=== PATIENT | female | born 1960 | race Caucasian/White ===

== ENCOUNTER 2018-05-21 06:19 | Outpatient (CLI) | payer BC ==
[~2018-05-21] VITALS: Ht 170.2 cm; Wt 59.0 kg
== END 2018-05-21 13:33 | disposition home or self-care (01) ==
LOC: PREOP 06:19
PROVIDERS: ATTEND Internal Medicine
DX: Z01.818 Encounter for other preprocedural examination (principal)

== ENCOUNTER 2018-05-25 07:34 | Day surgery (SDC) | payer BC ==
--- NOTE | 2018-05-21 17:03 | HISTORY AND PHYSICAL ---
DATE OF SERVICE: COLONOSCOPY HISTORY AND PHYSICAL HISTORY OF PRESENT ILLNESS: The patient is a 57-year-old white female referred by Dr. Cole for screening colonoscopy. She reports no past history of colonoscopy. She reports she has been under increasing stress with mother who is in failing health. She has been going through menopause and there have been some work place stresses as well. She had 2 episodes of diarrhea, which is unusual for her. She has a past history of reported irritable bowel syndrome, but has constipation predominant. With one of her illnesses, her was sick as well with diarrhea. She took Culturelle and within several weeks diarrhea had resolved. She had had some intermittent mucus with this, but denies any recent mucus and did not have any reported bright red blood per rectum or melena. She had some associated belching, but denied dysphagia or abdominal pain. There was some temporary distention, but this has resolved as well. She has had some intermittent nausea. Currently, she is taking no prescription medicine. PAST SURGICAL HISTORY: She reports no past surgeries. FAMILY HISTORY: She had one grandmother with uterine cancer that metastasized to the colon and she had one uncle, who has had some colon polyps removed. She is not aware of any family history for primary colon cancer. SOCIAL HISTORY: She has no past smoking history and no past history of alcohol consumption. PHYSICAL EXAMINATION: GENERAL: Reveals a normal weight well-appearing white female appears to be in no acute distress. VITAL SIGNS: 127.8 pounds. She states that her weight has been stable. Blood pressure 130/80, heart rate 72 and regular. HEENT: Unremarkable. Oral cavity reveals Mallampati class 2 pharyngeal configuration. No erythema is noted. No exudate is noted. CHEST: Clear to auscultation. CARDIOVASCULAR: Reveals a regular rate and rhythm without murmur, S3 or S4. ABDOMEN: Soft, supple without mass, organomegaly or tenderness. Bowel sounds are positive. No bruits are appreciated. EXTREMITIES: Reveal no cyanosis, clubbing or edema. ASSESSMENT AND PLAN: The patient was set up for screening colonoscopy on 05/25/2018. Prep instructions with Suprep kit were given. Questions were answered. The patient is extremely anxious about the procedure and wishes to have no recollection of it, so will be in listing anesthesiology services for Diprivan administration. I thank you for the referral of this pleasant female. Job ID: [id number] DocumentID: [id number] Dictated Date: 05/09/2018 20:22:31 Heel Packer Date: 05/09/2018 21:02:01 Dictated By: STEPHANIE DOMINGUEZ MD
[~2018-05-25] VITALS: Ht 170.2 cm; Wt 59.0 kg
[2018-05-25] MEDS ORDERED: LACTATED RINGERS 1,000 ML IV ONE (07:37)
[2018-05-25 07:40] VITALS: BP 132/87
[2018-05-25] MEDS ORDERED: LACTATED RINGERS 1,000 ML IV STA (07:44)
[2018-05-25] MEDS ORDERED: LIDOCAINE JELLY 2% 6 ML SYRINGE MM PRN (07:45)
--- NOTE | 2018-05-25 07:56 | Pre-Op Note & Conscious Sedat ---
Pre-Operative Progress Note H&P Reviewed The H&P was reviewed, patient examined and no changes noted. Date H&P Reviewed: May 25, 2018 Time H&P Reviewed: 07:50 Conscious Sedation Pre-Proced ASA Score 2 For ASA 3 and 4: Consider anesthesia and medical clearance. Also, for patients with a history of failed moderate sedation consider anesthesia. Airway Lungs Heart ASA score ASA 1: a normal healthy patient ASA 2: a patient with a mild systemic disease (mid diabetes, controlled hypertension, obesity ASA 3: a patient with a severe systemic disease that limits activity (angina , COPD, prior Myocardial infarction) ASA 4: a patient with an incapacitating disease that is a constant threat to life (CHF, renal failure) ASA 5: a moribund patient not expected to survive 24 hrs. (ruptured aneurysm) ASA 6: a declared brain patient whose organs are being harvested. For emergent operations, add the letter E after the classification Mallampati Classification Grade 2 Sedation Plan Analgesia, Amnesia, Plan communicated to team members, Discussed options with patient/fam, Discussed risks with patient/fam The patient is an appropriate candidate to undergo the planned procedure, sedation, and anesthesia. The patient immediately re-assessed prior to indication. STEPHANIE DOMINGUEZ MD May 25, 2018 07:56
[2018-05-25] MEDS ORDERED: D5 LR IV SOLUTION 1,000 ML IV STA (08:13)
[2018-05-25] MEDS ORDERED: fentaNYL INJECTION 100 MCG/2 ML AMP IVP ONE (08:15)
[2018-05-25] MEDS ORDERED: MIDAZOLAM 2 MG/2 ML (VERSED) VIAL IVP ONE (08:15)
[2018-05-25] MEDS ORDERED: FAMOTIDINE 20MG/2ML IV (PEPCID) IV ONE (08:15)
[2018-05-25] MEDS ORDERED: HURRICAINE EXT TUBE (BENZOCAINE) XX PRN (08:15)
[2018-05-25] MEDS ORDERED: FAMOTIDINE 20MG/2ML IV (PEPCID) ONE (08:20)
[2018-05-25] MEDS ORDERED: proPOfol 200 MG/20 ML (DIPRIVAN) VIAL IV ONE (08:34)
[2018-05-25] MEDS ORDERED: MIDAZOLAM 2 MG/2 ML (VERSED) VIAL ONE (08:35)
[2018-05-25] MEDS ORDERED: LIDOCAINE JELLY 2% 6 ML SYRINGE ONE (08:43)
[2018-05-25 09:15] VITALS: BP 122/74
[2018-05-25 09:40] VITALS: BP 124/75
[2018-05-25 09:41] VITALS: BP 132/87
[2018-05-25 09:50] VITALS: BP 132/87
--- NOTE | 2018-05-25 15:43 | OPERATIVE REPORT ---
DATE OF SERVICE: 05/25/2018 COLONOSCOPY SUMMARY INDICATION FOR THE PROCEDURE: Screening colonoscopy. DESCRIPTION OF THE PROCEDURE: The patient was placed in the left lateral decubitus position. Prior to undergoing colonoscopy, digital rectal evaluation was performed. Anal sphincter tone was normal and the perianal reflexes intact. There are no abnormalities noted to digital inspection of anal canal or distal rectal vault. The colonoscope was then inserted into the rectum and under direct visualization, advanced to the cecum. The cecum was identified by identification of the ileocecal valve and cecal strap. Photographic documentation was obtained. Careful inspection was made as the colonoscope was withdrawn. The procedure was done under Diprivan base anesthesia due to history of IBS. FINDINGS: There is no evidence for internal or external hemorrhoids. The rectum, sigmoid colon, descending colon, transverse colon, ascending colon and cecum were unremarkable with no evidence for neoplasia, diverticular disease or other abnormality. ASSESSMENT: Normal colonoscopy to the cecum. As the patient is not aware of any family history for colon cancer, we would advocate consideration for repeat screening colonoscopy in 10 years. I thank you for the referral of this pleasant lady. Sincerely, Job ID: [id number] DocumentID: [id number] Dictated Date: 05/25/2018 09:03:46 Truck Repair Supervisor Date: 05/25/2018 15:43:13 Dictated By: STEPHANIE DOMINGUEZ MD
== END 2018-05-25 09:45 | disposition home or self-care (01) ==
LOC: ENDO 07:34
PROVIDERS: ATTEND Internal Medicine
DX: Z12.11 Encounter for screening for malignant neoplasm of colon (principal); K21.9 Gastro-esophageal reflux disease without esophagitis

== ENCOUNTER → 2020-10-26 | Outpatient (CLI) | payer BC ==
--- NOTE | 2020-10-26 14:13 | Diagnostic Imaging Report ---
INDICATION: Routine screening. COMPARISON: No prior mammograms are available for comparison. This is a baseline study. TECHNIQUE: 2D and 3D bilateral screening mammography was performed with CAD. FINDINGS: Both breasts are heterogeneously dense, limiting the sensitivity of mammography. There are benign calcifications in both breasts. A partially calcified nodule in the superior and outer left breast is noted, likely a partially calcified fibroadenoma. There is a circumscribed mass in the retroareolar slightly outer left breast. No other masses are seen. The axillae are unremarkable. IMPRESSION: Circumscribed mass in the retroareolar outer left breast. Further evaluation with ultrasound is recommended. ACR BI-RADS Category 0: Incomplete. (Needs additional imaging evaluation). Result letter will be mailed to the patient. Note: At least 10% of breast cancer is not imaged by mammography. Dictated by: Dictated on workstation # [id number]
== END ==
LOC: RAD 07:55
PROVIDERS: ATTEND Internal Medicine
DX: Z12.31 Encounter for screening mammogram for malignant neoplasm of breast (principal)
CPT/HCPCS: 77063; 77067

== ENCOUNTER → 2020-11-05 | Outpatient (CLI) | payer BC ==
[~2020-11-05] MED LIST: LIDOCAINE 1% INJ 20 ML 20 ML VIAL ONE
--- NOTE | 2020-11-05 10:50 | Diagnostic Imaging Report ---
INDICATION: Left breast nodules. Patient presents for further evaluation. COMPARISON: Correlation is made with the screening mammogram from 10/26/2020. FINDINGS: Sonographic interrogation of the retroareolar left breast as well as the upper outer left breast was performed. There is a smoothly marginated, ovoid solid nodule in the retroareolar 2 o'clock location measuring 1.5 x 0.6 x 1.4 cm, corresponding to the mammographic abnormality. No internal vascularity is seen. The features are most consistent with a fibroadenoma. In addition, there is a partially calcified hypoechoic nodule at the 1 o'clock location 2 cm from the nipple which shows some lobulated margins. This measures 1.3 x 0.8 x 1.1 cm. This could conceivably represent a degenerating fibroadenoma but the margins are slightly more irregular than a typical fibroadenoma and tissue sampling is recommended. No other masses are identified. IMPRESSION: 1. A smoothly marginated, ovoid solid nodule at the retroareolar 2 o'clock location of the left breast corresponds to the mammographic density. This is most consistent with a fibroadenoma. 2. There is a hypoechoic, partially calcified but also slightly irregular nodule at the 1 o'clock location in the left breast 2 cm from the nipple. While this could represent a degenerating fibroadenoma, tissue sampling is recommended. This would be amenable to ultrasound-guided core biopsy. ACR BI-RADS Category 4: Suspicious abnormality. Result letter will be mailed to the patient. Note: At least 10% of breast cancer is not imaged by mammography. Dictated by: Dictated on workstation # [id number]
== END ==
LOC: RAD 09:15
PROVIDERS: ATTEND Nurse Practitioner Family
DX: N63.20 Unspecified lump in the left breast, unspecified quadrant (principal)
CPT/HCPCS: 76642

== ENCOUNTER → 2020-11-06 | Outpatient (CLI) | payer BC ==
[~2020-11-06] MED LIST changes: +LIDOCAINE 1% INJ 20 ML 20 ML VIAL INJ ONE; -LIDOCAINE 1% INJ 20 ML 20 ML VIAL ONE
--- NOTE | 2020-11-06 10:14 | Diagnostic Imaging Report ---
INDICATION: Left breast mass. PROCEDURE: The patient presents for biopsy. The patient was brought to the ultrasound suite, placed on table in the supine position. Ultrasound imaging of the left breast was performed to evaluate appropriate entry site. Left breast was then prepped and draped in the usual sterile fashion. A small amount of 1% lidocaine was utilized for local anesthesia. A total of 4 core biopsies were obtained of the hypoechoic lobulated mass at the 1:00 location in the left breast, 2 cm from the nipple, utilizing a 14-gauge Achieve needle. A marker clip was then deployed. Hemostasis was obtained using manual compression. Patient tolerated the procedure well and obtained a post procedure mammogram in satisfactory condition. IMPRESSION: Successful ultrasound-guided core biopsy of left breast mass at the 1:00 location, 2 cm from the nipple. Pathology results are currently pending. Dictated by: Dictated on workstation # [id number]
--- NOTE | 2020-11-06 10:28 | Diagnostic Imaging Report ---
Indication: Status post left breast biopsy. Unilateral left 2-D CC and ML mammography was performed post left breast biopsy. Marker clip is located just medial to the calcified lesion in the upper outer aspect of the left breast. IMPRESSION: A marker clip placement, status post left breast biopsy. Dictated by: Dictated on workstation # [id number]
== END ==
LOC: RAD 09:15
PROVIDERS: ATTEND Internal Medicine
DX: N63.21 Unspecified lump in the left breast, upper outer quadrant (principal)
CPT/HCPCS: 19083; 77065; G0279